=== PATIENT | female | born 1960 | race Caucasian/White ===

== ENCOUNTER 2017-08-20 14:15 | Inpatient (IN) | payer OTHER ==
[~2017-08-20] VITALS: Ht 165.1 cm; Wt 93.9 kg
[2017-08-20] MEDS ORDERED: GABA600T PO (14:51)
[2017-08-20] MEDS ORDERED: LOSA25TA3 PO (14:51)
[2017-08-20] MEDS ORDERED: VENL150C2 PO (14:51)
[2017-08-20] MEDS ORDERED: SODIUM CHLORIDE 0.9% 1,000 ML IV ONE (15:20)
[2017-08-20 15:40] LABS: BASOPHILS % 0.8 % (0.0-2.0); EOSINOPHILS % 1.1 % (0.0-5.0); HEMATOCRIT. 41.4 % (36.0-48.0); HEMOGLOBIN. 14.4 g/dL (12.0-16.0); LYMPHOCYTES % 24.1 % (20.0-50.0); MEAN CORPUSCULAR HEMOGLOBIN 32.3 pg (28.0-32.0); MEAN CORPUSCULAR VOLUME 92.7 fL (81.0-99.0); MEAN PLATELET VOLUME 9.3 fl (7.4-10.4); PLATELET 175 x1000/uL (130-400); RED BLOOD CELL COUNT 4.46 mill/uL (4.2-5.4); RED CELL DISTRIBUTION WIDTH 13.7 % (11.6-14.6)
[2017-08-20 15:43] LABS: PROTHROMBIN TIME 10.3 sec (9.4-11.6)
[2017-08-20 15:45] LABS: CHLORIDE 107 mEq/L (98-107)
[2017-08-20] MEDS ORDERED: HYDROCODONE/ACETAMINOPHEN 5/325MG TABLET PO NR (16:34)
[2017-08-20 18:09] LABS: CLARITY URINE CLEAR (CLEAR); COLOR URINE YELLOW (YELLOW); KETONES URINE NEGATIVE (NEGATIVE); LEUKOCYTE ESTERASE URINE NEGATIVE (NEGATIVE); NITRITE URINE NEGATIVE (NEGATIVE); OCCULT BLOOD URINE NEGATIVE (NEGATIVE); PH URINE 6.5 (4.5-8.0); PROTEIN URINE NEGATIVE (NEGATIVE); SPECIFIC GRAVITY URINE 1.015 (1.005-1.030)
[2017-08-20] MEDS ORDERED: ATOR20TA PO (18:19)
[2017-08-20 18:49] VITALS: BP 103/62
[2017-08-20] MEDS ORDERED: CLONIDINE 0.1MG TABLET PO PRN (19:30)
[2017-08-20] MEDS ORDERED: ACETAMINOPHEN 325MG TABLET PO PRN (19:30)
[2017-08-20] MEDS ORDERED: BISACODYL 10MG SUPP PR PRN (19:30)
[2017-08-20] MEDS ORDERED: MAGNESIUM/ALUMINUM HYDROXIDE/SIMETHICONE 30ML UDC PO PRN (19:30)
[2017-08-20] MEDS ORDERED: LORAZEPAM 2MG/ML CPJ IV NR (19:45)
[2017-08-20 20:00] VITALS: BP 103/62
[2017-08-20] MEDS: GABAPENTIN 300MG CAPSULE PO SCH (21:41)
[2017-08-20] MEDS: VENLAFAXINE HCL 75MG TABLET PO SCH (21:41)
[2017-08-20] MEDS: SODIUM CHLORIDE 0.9% INJ 3ML FLUSH IVF SCH (21:41)
[2017-08-20] MEDS ORDERED: SODIUM CHLORIDE 0.9% 1,000 ML IV SCH (22:15)
[2017-08-21] VITALS (30 sets, daily range): BP systolic 92–153; BP diastolic 43–90
[2017-08-21] MEDS: SODIUM CHLORIDE 0.9% INJ 3ML FLUSH IVF SCH ×3 (06:13→22:21)
[2017-08-21] MEDS ORDERED: GELATIN SPONGE,ABSORBABLE SZ 100 ONE (06:25)
[2017-08-21] MEDS ORDERED: THROMBIN (BOVINE) 5000 UNITS/VIAL TOP ONE (06:26)
[2017-08-21] MEDS ORDERED: NORMAL SALINE 0.9% 10 ML SYR ONE (06:26)
[2017-08-21] MEDS ORDERED: BACITRACIN 50,000 UNITS/VIAL ONE (06:26)
[2017-08-21] MEDS ORDERED: NEOSTIGMINE METHYLSULFATE 1MG/ML 10 ML VIAL ONE (07:08)
[2017-08-21] MEDS ORDERED: FENTANYL CITRATE/PF 50MCG/ML 2ML VIAL ONE ×2 (07:08→09:10)
[2017-08-21] MEDS ORDERED: ROCURONIUM BROMIDE 10MG/ML VIAL 5ML IV ONE ×2 (07:08→07:59)
[2017-08-21] MEDS ORDERED: PROPOFOL 200MG/20ML VIAL IV ONE ×3 (07:08→09:09)
[2017-08-21] MEDS ORDERED: GLYCOPYRROLATE 0.2 MG/ML 2ML VIAL ONE (07:08)
[2017-08-21] MEDS ORDERED: METOCLOPRAMIDE HCL 10MG/2ML VIAL ONE (07:09)
[2017-08-21] MEDS ORDERED: PHENYLEPHRINE HCL 10 MG/ML 1ML (IV VIAL) IV ONE (07:09)
[2017-08-21] MEDS ORDERED: DEXAMETHASONE 4MG/ML 1ML VIAL ONE (07:09)
[2017-08-21] MEDS ORDERED: SUCCINYLCHOLINE CHLORIDE 200MG/10ML VIAL IV ONE (07:09)
[2017-08-21] MEDS ORDERED: EPHEDRINE SULFATE 50MG/ML VIAL ONE (07:09)
[2017-08-21] MEDS ORDERED: ONDANSETRON HCL 4MG/2ML VIAL ONE (07:09)
[2017-08-21] MEDS ORDERED: LIDOCAINE HCL/PF 1% 10 MG/ML 5ML VIAL ONE (07:09)
[2017-08-21] MEDS ORDERED: NITROGLYCERIN 50MG PREMIX 250 ML IV ONE (09:09)
[2017-08-21] MEDS ORDERED: SODIUM CHLORIDE 0.9% 1,000 ML IV ONE (10:49)
[2017-08-21] MEDS ORDERED: MEPERIDINE HCL/PF 25MG/ML CPJ IV PRN ×2 (11:00)
[2017-08-21] MEDS ORDERED: ONDANSETRON HCL 4MG/2ML VIAL IV PRN (11:00)
[2017-08-21] MEDS: HYDROMORPHONE HCL/PF 2MG/ML CPJ IV PRN ×5 (11:08→12:56)
[2017-08-21] MEDS: MORPHINE SULFATE 2 MG/ML CPJ (NOT FOR IM USE) IV PRN ×3 (11:14→13:07)
[2017-08-21] MEDS ORDERED: NICARDIPINE 100 MG in SODIUM CHLORIDE 0.9% 60 ML IV PRN (12:08)
[2017-08-21] MEDS ORDERED: CEFAZOLIN SODIUM 1000MG/VIAL IV SCH (14:00)
[2017-08-21] MEDS: DEXT 5%/LACTATED RINGERS 1,000 ML IV SCH ×2 (14:09→22:21)
[2017-08-21] MEDS: MORPHINE SULFATE 4 MG/ML CPJ (NOT FOR IM USE) IV PRN ×2 (14:48→19:38)
[2017-08-21] MEDS: DEXAMETHASONE 4MG/ML 1ML VIAL IV SCH ×2 (14:59→19:04)
[2017-08-21] MEDS ORDERED: ONDANSETRON INJ IV PRN (16:00)
[2017-08-21] MEDS ORDERED: NALOXONE INJ IV PRN (16:00)
[2017-08-21] MEDS ORDERED: DIPHENHYDRAMINE INJ IV PRN (16:00)
[2017-08-21] MEDS: HYDROMORPHONE PCA 10MG/50ML IV PRN (17:50)
[2017-08-21] MEDS ORDERED: NICOTINE 21MG PATCH TD NR (18:00)
[2017-08-21] MEDS ORDERED: BUDESONIDE 0.5MG/2ML NEB HHN SCH (18:00)
[2017-08-21] MEDS: CEFAZOLIN 1000MG PREMIX 50 ML IV SCH (19:05)
[2017-08-21] MEDS: GABAPENTIN 300MG CAPSULE PO SCH (20:35)
[2017-08-21] MEDS: VENLAFAXINE HCL 75MG TABLET PO SCH (20:36)
[2017-08-22] VITALS (47 sets, daily range): BP systolic 89–149; BP diastolic 36–71
[2017-08-22] MEDS: DEXAMETHASONE 4MG/ML 1ML VIAL IV SCH ×3 (05:31→11:43)
[2017-08-22] MEDS: CEFAZOLIN 1000MG PREMIX 50 ML IV SCH ×3 (05:31→17:42)
[2017-08-22] MEDS: SODIUM CHLORIDE 0.9% INJ 3ML FLUSH IVF SCH ×3 (05:31→21:05)
[2017-08-22] MEDS: DEXT 5%/LACTATED RINGERS 1,000 ML IV SCH (05:32)
[2017-08-22] MEDS: MORPHINE SULFATE 4 MG/ML CPJ (NOT FOR IM USE) IV PRN ×3 (08:37→23:55)
[2017-08-22] MEDS: NICOTINE 21MG PATCH TD SCH (08:50)
[2017-08-22] MEDS ORDERED: GADOBENATE DIMEGLUMINE 529 MG/ML 10ML IV ONE (08:54)
[2017-08-22] MEDS ORDERED: DIAZEPAM 5 MG/ML 2ML CPJ IV NR (11:00)
[2017-08-22] MEDS: HYDROCODONE/ACETAMINOPHEN 5/325MG TABLET PO PRN ×2 (13:36→17:41)
[2017-08-22] MEDS: HYDROMORPHONE PCA 10MG/50ML IV PRN (14:49)
[2017-08-22] MEDS: TEMAZEPAM 15MG CAPSULE PO PRN (20:46)
[2017-08-22] MEDS: GABAPENTIN 300MG CAPSULE PO SCH (20:46)
[2017-08-22] MEDS: VENLAFAXINE HCL 75MG TABLET PO SCH (20:47)
[2017-08-23] VITALS: BP 118/58
[2017-08-23] MEDS: HYDROCODONE/ACETAMINOPHEN 10/325MG TABLET PO PRN ×5 (00:38→20:07)
[2017-08-23] MEDS: CEFAZOLIN 1000MG PREMIX 50 ML IV SCH ×2 (02:47→10:20)
[2017-08-23 04:00] VITALS: BP 119/67
[2017-08-23] MEDS: MORPHINE SULFATE 4 MG/ML CPJ (NOT FOR IM USE) IV PRN ×6 (05:08→21:00)
[2017-08-23] MEDS: SODIUM CHLORIDE 0.9% INJ 3ML FLUSH IVF SCH ×3 (05:51→20:08)
[2017-08-23] MEDS: NICOTINE 21MG PATCH TD SCH (08:10)
[2017-08-23 08:19] VITALS: BP 111/54
[2017-08-23 12:00] VITALS: BP 108/56
[2017-08-23] MEDS: DIPHENHYDRAMINE 50MG/ML VIAL IV PRN ×2 (12:10→20:08)
[2017-08-23] MEDS ORDERED: IPRATROPIUM/ALBUTEROL 0.5-3(2.5)MG/3ML NEB HHN PRN (14:15)
[2017-08-23] MEDS: DOCUSATE SODIUM 250MG CAPSULE PO SCH (14:45)
[2017-08-23] MEDS: BISACODYL 5MG TABLET PO SCH (14:46)
[2017-08-23 16:00] VITALS: BP 117/55
[2017-08-23] MEDS: BUDESONIDE 0.5MG/2ML NEB HHN SCH ×2 (18:00→20:00)
[2017-08-23 20:00] VITALS: BP 103/55
[2017-08-23] MEDS: TEMAZEPAM 15MG CAPSULE PO PRN (20:07)
[2017-08-23] MEDS: VENLAFAXINE HCL 75MG TABLET PO SCH (20:08)
[2017-08-23] MEDS: GABAPENTIN 300MG CAPSULE PO SCH (20:08)
[2017-08-23] MEDS: ONDANSETRON HCL 4MG/2ML VIAL IV PRN (20:59)
[2017-08-24] VITALS: BP 110/60
[2017-08-24] MEDS: MORPHINE SULFATE 4 MG/ML CPJ (NOT FOR IM USE) IV PRN ×2 (00:19→07:58)
[2017-08-24] MEDS: HYDROCODONE/ACETAMINOPHEN 10/325MG TABLET PO PRN ×4 (03:37→19:01)
[2017-08-24] MEDS: SODIUM CHLORIDE 0.9% INJ 3ML FLUSH IVF SCH ×3 (03:38→21:36)
[2017-08-24] MEDS: DIPHENHYDRAMINE 50MG/ML VIAL IV PRN ×2 (03:38→10:07)
[2017-08-24 04:00] VITALS: BP 129/74
[2017-08-24 08:00] VITALS: BP 131/74
[2017-08-24] MEDS: BISACODYL 5MG TABLET PO SCH (08:00)
[2017-08-24] MEDS: DOCUSATE SODIUM 250MG CAPSULE PO SCH (08:00)
[2017-08-24] MEDS: NICOTINE 21MG PATCH TD SCH (08:01)
[2017-08-24 12:00] VITALS: BP 130/70
[2017-08-24 16:00] VITALS: BP 120/80
[2017-08-24] MEDS ORDERED: IBUPROFEN 600MG TABLET PO SCH (17:50)
[2017-08-24] MEDS: ONDANSETRON HCL 4MG/2ML VIAL IV PRN (19:09)
[2017-08-24 20:00] VITALS: BP 136/76
[2017-08-24] MEDS: BUDESONIDE 0.5MG/2ML NEB HHN SCH (20:50)
[2017-08-24] MEDS: VENLAFAXINE HCL 75MG TABLET PO SCH (20:55)
[2017-08-24] MEDS: TEMAZEPAM 15MG CAPSULE PO PRN (20:55)
[2017-08-24] MEDS: GABAPENTIN 300MG CAPSULE PO SCH (20:56)
[2017-08-25] VITALS: BP 110/54
[2017-08-25] MEDS: HYDROCODONE/ACETAMINOPHEN 10/325MG TABLET PO PRN ×2 (02:33→08:47)
[2017-08-25] MEDS: DIPHENHYDRAMINE 50MG/ML VIAL IV PRN (02:47)
[2017-08-25 04:00] VITALS: BP 106/57
[2017-08-25] MEDS: SODIUM CHLORIDE 0.9% INJ 3ML FLUSH IVF SCH (06:17)
[2017-08-25 08:00] VITALS: BP 118/67
[2017-08-25] MEDS: NICOTINE 21MG PATCH TD SCH (08:48)
[2017-08-25] MEDS: BISACODYL 5MG TABLET PO SCH (08:50)
[2017-08-25] MEDS ORDERED: IBUPROFEN 600MG TABLET PO SCH (09:00)
[2017-08-25] MEDS: BUDESONIDE 0.5MG/2ML NEB HHN SCH (09:01)
[2017-08-25] MEDS: ONDANSETRON HCL 4MG/2ML VIAL IV PRN (09:05)
[2017-08-25 11:20] VITALS: BP 118/67
== END 2017-08-25 11:33 | disposition home or self-care (01) | DRG 23 ==
LOC: ER 15:25 → 6EST 15:42 → ENRESERV 15:55 → EDBEDREQ 16:45 → MICUSO 08-21 11:40 → 6EST 08-22 20:10
PROVIDERS: ADMIT Internal Medicine; ATTEND Internal Medicine
PROC: 00BX0ZZ Excision of Thoracic Spinal Cord, Open Approach (ICD-10-PCS; principal; 2017-08-21 07:00)
DX: D32.1 Benign neoplasm of spinal meninges (principal); G82.20 Paraplegia, unspecified; I71.2 Thoracic aortic aneurysm, without rupture; G83.4 Cauda equina syndrome; F32.9 Major depressive disorder, single episode, unspecified; M54.30 Sciatica, unspecified side; G95.9 Disease of spinal cord, unspecified; F17.200 Nicotine dependence, unspecified, uncomplicated; I10 Essential (primary) hypertension; M51.9 Unspecified thoracic, thoracolumbar and lumbosacral intervertebral disc disorder; Z90.49 Acquired absence of other specified parts of digestive tract; D32.9 Benign neoplasm of meninges, unspecified; Z88.0 Allergy status to penicillin; G95.20 Unspecified cord compression; Z82.3 Family history of stroke; Z82.5 Family history of asthma and other chronic lower respiratory diseases; Z83.3 Family history of diabetes mellitus; Z90.710 Acquired absence of both cervix and uterus; Z90.721 Acquired absence of ovaries, unilateral
CPT/HCPCS: 36415; 71045; 72070; 72157; 80053; 81003; 85025; 85610; 86850; 86900; 88304; 88305; 88311; 88331; 93005; 97110; 97116; 97162; 97166; 97535; 99285; A4216; A9577; C1893; J0330; J0690; J1100; J1170; J1200; J2060; J2270; J2370; J2405; J2704; J2710; J2765; J3010; J3490; J7030; J7121; J7620; J7626